=== PATIENT | male | born 1980 | race Caucasian/White ===

== ENCOUNTER 2023-03-01 15:57 | Outpatient (CLI) | payer BC ==
[2023-03-01 17:08] LABS: #Basophils 0.1 10x3/uL (0.0-0.2); #Eosinphils 0.1 10x3/uL (0.0-0.5); #Monocytes 0.7 10x3/uL (0.0-1.1); #Neutrophils 4.2 10x3/uL (1.5-8.4); %Basophils 0.8 % (0.0-2.0); %Eosinophils 1.4 % (0.0-6.0); %Lymphocytes 28.2 % (18.0-47.0); %Monocytes 9.2 % (0.0-10.0); %Neutrophils 60.1 % (40.0-75.0); Hematocrit 45.2 % (38.8-50.0); Hemoglobin 15.6 g/dL (13.5-17.5); Mean Corpuscular HGB CONC 34.5 g/dL (32.0-36.0); Mean Corpuscular Hemoglobin 30.5 pg (27.0-33.0); Mean Corpuscular Volume 88.5 fl (81.2-95.1); Mean Platelet Volume 9.5 fl (7.4-10.4); Platelet Count 236 10x3/uL (150-450); RBC Distribution Width 11.2 % (11.5-14.5); Red Blood Cell (RBC) Count 5.11 10x6/uL (4.32-5.72); White Blood Cell (WBC) Count 7.1 10x3/uL (3.5-10.5)
[2023-03-01 17:32] LABS: Anion Gap 13 mmol/L (10-20); BUN (Urea Nitrogen) 11 mg/dL (8.9-20.6); Calc. Creatinine Clearance 0 mL/min (70-130); Calcium 9.1 mg/dL (7.8-10.44); Carbon Dioxide 28 mmol/L (22-29); Chloride 104 mmol/L (98-107); Estimated GFR 109; Glucose 59 mg/dL (70-105); Potassium 3.8 mmol/L (3.5-5.1); Sodium 141 mmol/L (136-145)
== END 2023-03-01 15:58 | disposition home or self-care (01) ==
LOC: LABBT 15:57
PROVIDERS: ATTEND Surgery
DX: Z01.818 Encounter for other preprocedural examination (principal); K40.20 Bilateral inguinal hernia, without obstruction or gangrene, not specified as recurrent
CPT/HCPCS: 80048; 85025; 93005; 93010

== ENCOUNTER 2023-03-05 07:01 | Day surgery (SDC) | payer BC ==
[2023-03-01 16:33] VITALS: BMI 22.7
[2023-03-05] MEDS ORDERED: EPINEPHrine 1 MG/ML VIAL ONE (07:10)
[2023-03-05] MEDS ORDERED: Bupivacaine 0.25% HCL 30 ML VIAL ONE (07:11)
[2023-03-05] MEDS ORDERED: Lidocaine 1% MPF 2 ML VIAL ONE (07:50)
[2023-03-05] MEDS ORDERED: fentaNYL PF 100 MCG/2 ML SYRINGE ONE ×2 (08:17→09:02)
[2023-03-05] MEDS ORDERED: PROPOFOL 40 ML ONE (08:17)
[2023-03-05] MEDS ORDERED: Rocuronium Bromide 10 MG/ML (10ML VIAL) ONE ×2 (08:22→08:29)
[2023-03-05] MEDS ORDERED: Ondansetron PF 4 MG/2 ML Vial ONE ×2 (08:22→08:29)
[2023-03-05] MEDS ORDERED: Dexamethasone 4 mg/ml Vial ONE (08:22)
[2023-03-05] MEDS ORDERED: Lidocaine 1% PF 5 ML VIAL ONE ×2 (08:22→08:29)
[2023-03-05] MEDS ORDERED: Sodium Chloride 0.9% 100 ML ONE (08:23)
[2023-03-05] MEDS ORDERED: CEFAZOLIN 2 GM VIAL ONE (08:23)
[2023-03-05] MEDS ORDERED: PROPOFOL 200 MG/20 ML VIAL ONE (08:29)
[2023-03-05] MEDS ORDERED: Dexamethasone 20 MG/5 ML VIAL ONE (08:29)
[2023-03-05] MEDS ORDERED: SUGAMMADEX SODIUM 200 MG/2 ML VIAL ONE (09:02)
[2023-03-05] MEDS ORDERED: fentaNYL 50 mcg/mL 1 mL Vial ONE ×2 (10:01→10:48)
[2023-03-05] MEDS ORDERED: HYDROcodone/Acetaminophen 5/325 mg Tablet ONE (12:32)
[2023-03-05] MEDS ORDERED: diphenhydrAMINE 25 MG CAP ONE (12:55)
== END 2023-03-05 13:25 | disposition home or self-care (01) ==
LOC: SDC 07:01
PROVIDERS: ATTEND Surgery
PROC: 0YUA4JZ Supplement Bilateral Inguinal Region with Synthetic Substitute, Percutaneous Endoscopic Approach (ICD-10-PCS; principal; 2023-03-05)
DX: K40.20 Bilateral inguinal hernia, without obstruction or gangrene, not specified as recurrent (principal); Z79.899 Other long term (current) drug therapy; Z87.891 Personal history of nicotine dependence; Z98.890 Other specified postprocedural states
CPT/HCPCS: A4314; C1781; J0171; J1100; J2405; J2704; J3010; J3490; S0020